=== PATIENT | female | born 1955 | race Caucasian/White ===

== ENCOUNTER 2017-12-11 12:46 | Day surgery (SDC) | payer BC ==
[2017-12-04 10:03] LABS: APPEARANCE,URINE CLEAR; BILIRUBIN,URINE NEGATIVE (NEGATIVE); GLUCOSE, URINE NEGATIVE (NEGATIVE); KETONES,URINE NEGATIVE (NEGATIVE); LEUKOCYTE ESTERASE,URINE TRACE (NEGATIVE); NITRITE,URINE NEGATIVE (NEGATIVE); PROTEIN,URINE NEGATIVE (NEGATIVE); UROBILINOGEN,URINE NEGATIVE mg/dL (<2.0)
[2017-12-04 10:04] LABS: COLOR,URINE YELLOW
--- NOTE | 2017-12-04 13:45 | EKG REPORT ---
SEVERITY:- NORMAL ECG - SINUS RHYTHM : Confirmed by: Trisha Rodríguez MD 04-Dec-2017 13:43:34
[~2017-12-11 12:46] MED LIST: CLINDAMYCIN 600 MG/D5W RTU 600 MG/50 ML RTUPB IV PRN; LACTATED RINGERS 1000 ML IV PRN; LIDOCAINE 0.5% INJ-PF (5 MG/ML) 50 ML SDV SUBCUT PRN
[2017-12-11] MEDS ORDERED: BUPIVACAINE HCL 0.5 % INJ/PF 30 ML SDV ONE (13:40)
[2017-12-11] MEDS ORDERED: LIDOCAINE 1% INJ-PF (10 MG/ML) 30 ML SDV ONE (14:11)
[2017-12-11] MEDS ORDERED: FENTANYL CITRATE INJ/PF 100 MCG/2 ML AMPUL ONE (14:27)
[2017-12-11] MEDS ORDERED: MIDAZOLAM 2 MG/2 ML INJ ONE (14:28)
[2017-12-11] MEDS ORDERED: ONDANSETRON HCL INJ/PF 4 MG/2 ML SDV ONE (14:28)
[2017-12-11] MEDS ORDERED: PROPOFOL INJ 200 MG/20 ML VIAL IV ONE (14:28)
[2017-12-11] MEDS ORDERED: ONDANSETRON HCL INJ/PF 4 MG/2 ML SDV IV PRN ×2 (15:16→15:52)
[2017-12-11] MEDS ORDERED: HYDROCODONE/ACETAMINOPHEN 5-325 MG TABLET PO PRN (15:16)
--- NOTE | 2017-12-11 15:17 | Discharge Summary ---
Discharge Summary (SDC) - Discharge Final Diagnosis: Mass Left Middle Finger Date of Surgery: 12/11/17 Discharge Date: 12/11/17 Condition: Good Treatment or Instructions: Schedule Follow Up w/ Dr. Zac Mckeon @ [facility] for Surgery to be seen in 10-14 days or as scheduled [place]: [place]: [place]: May remove dressing on postop day #3, keep incision covered and dry. Ice and elevate May begin finger range of motion attempting to make full fist. Stool softener of choice when on pain medication. Prescriptions: Hydrocodone/Acetaminophen [[place] 5-325 mg Tablet] 1 tab PO Q6 PRN #15 tablet PRN Reason: Referrals: LEE CASEY PA-C [Primary Care Provider] - Discharge Diet: As Tolerated Respiratory Treatments at Home: Deep Breathing/Coughing Discharge Activity: No Lifting Over 10 Pounds, No Lifting/Push/Pulling Report the Following to Your Physician Immediately: Fever over 101 Degrees, Unusual Bleeding, Redness, Swelling, Warmth, Increased Soreness
--- NOTE | 2017-12-11 15:18 | Operative Report ---
Operative Report DATE OF SURGERY: 12/11/17 PREOPERATIVE DIAGNOSIS: Mass left middle finger POSTOPERATIVE DIAGNOSIS: Same OPERATION: Excision mass left middle finger SURGEON: PEARL BARRAZA ANESTHESIA: LMAC TISSUE REMOVED OR ALTERED: Mass sent to pathology COMPLICATIONS: None ESTIMATED BLOOD LOSS: Minimal PROCEDURE: Indication for above procedure: 62-year-old female presents my office with a mass of her left middle finger. Given the size and location of the mass was causing patient discomfort. At that point we discussed treatment options including operative versus nonoperative and mentioned including risks and benefits after discussing each decision was made to proceed with operative treatment. Procedure In Detail: Patient was seen and evaluated in the preoperative holding area. The LEFT upper extremity was initialized and marked. Patient received 2g of Ancef IV for bacterial prophylaxis. Patient was taken back to the operative room where transferred to the operative table. Once they were adequately anesthetized a nonsterile tourniquet was placed on the upper extremity. A surgical team debriefing was performed ensuring all instrumentation was available, the surgical procedure was discussed with possible concerns reviewed. A digital block was performed utilizing 10 mL of 1% lidocaine without epinephrine. The upper extremity was prepped with chlorhexidine and alcohol and draped in a sterile fashion. A timeout was done identifying correct patient, procedure and extremity everyone in attendance agree with this and verbalized no concerns. The extremity was exsanguinated the tourniquet was inflated to 250 mmHg. Longitudinal skin incision was made along the dorsal aspect of the middle finger proximal phalanx blunt dissection was performed. Mass was isolated and was found to be a 3 cm x 1.5 cm lipoma adherent to the underlying extensor tendon. It was then removed and sent to pathology in formalin. The remaining portion of the mass was appreciated. Tourniquet was deflated. Any peripheral bleeding was controlled with bipolar cautery into the wound was dry. Wound was irrigated with normal saline. Skin incision was closed with interrupted 4-0 nylon suture. Patient was placed in a soft dressing. Sponge counts, instrument counts, needle counts counts were correct. Patient was then awoken from anesthesia. Transferred from the operating room table to the operating room stretcher. There was no intraoperative complications patient tolerated procedure well stable to PACU. Postoperative plan: Patient will follow-up as scheduled for wound check. They will call with any questions or concerns.
[2017-12-11] MEDS ORDERED: PROMETHAZINE HCL INJ 25 MG/1 ML VIAL IV PRN ×2 (15:52)
[2017-12-11] MEDS ORDERED: MEPERIDINE HCL/PF INJ 25 MG/1 ML DISP.SYRIN IV PRN (15:52)
[2017-12-11] MEDS ORDERED: MORPHINE SULFATE 10 MG/ML INJ IV PRN (15:52)
[2017-12-11] MEDS ORDERED: DIPHENHYDRAMINE HCL 50 MG/ML VIAL IV PRN (15:52)
[2017-12-11] MEDS ORDERED: FENTANYL CITRATE INJ/PF 100 MCG/2 ML AMPUL IV PRN ×3 (15:52)
[2017-12-11] MEDS ORDERED: OXYCODONE-ACETAMINOPHEN 5-325 MG TABLET PO PRN ×2 (15:52)
[2017-12-11 18:20] VITALS: BP 114/65
== END 2017-12-11 18:05 | disposition home or self-care (01) ==
LOC: OROUT 12:46
PROVIDERS: ATTEND Orthopaedic Surgery
DX: D17.22 Benign lipomatous neoplasm of skin and subcutaneous tissue of left arm (principal); M79.645 Pain in left finger(s); E78.5 Hyperlipidemia, unspecified; I10 Essential (primary) hypertension; Z88.0 Allergy status to penicillin; Z79.899 Other long term (current) drug therapy; Z87.891 Personal history of nicotine dependence; Z01.818 Encounter for other preprocedural examination
CPT/HCPCS: 26111; 93005; 81001; 88304 ×2; 93010; J2250; J3010; J3490; J2405; J2704; 400